=== PATIENT | female | born 1935 | race Caucasian/White ===

== ENCOUNTER → 2016-05-04 | Outpatient (CLI) | payer MEDICARE, OTHER ==
[~2016-05-04] MED LIST: APAP/BUTALBITAL1 TA1 PO; ATENOLOL50 MG PO; AUGMENTIN 875-1 EACH PO; B12-METHYL1000 MCG PO; BUFFERED ASPIR325 MG PO; DESOXIMETASONE0.25% TP; DILTIAZEM 180180 MG PO; FLAX SEED OIL1000 MG PO; FLEXERIL10 MG PO; FUROSEMIDE40 MG PO; HUMALOG KW100 UNIT/1 SQ; LIDODERM 5% PA1 EACH TD; LIDODERM PATCH TD; MIRALAX17 GM/DOSE PO; NEURONTIN100 MG PO; NIACIN500 MG PO; NORCO 325 MG-101 TAB PO; NOVOLOG FLEX100 U/ML SC; OMEPRAZOLE40 MG PO; PERCOCET1 TAB PO; POTASSIUM CHLOR8 MEQ PO; PREMPRO 0.625 M1 TAB PO; PROMETHAZINE12.5 M5 PO; PROMETHAZINE25 MG/ML PO; PYRIDIUM 200MG200 MG PO; PYRIDIUM100 M2 PO; UNITHROID PO; VALTREX1 GM PO; ZAROXOLYN 2.5M2.5 MG PO; [UNRECOGNIZED DRUG - CODE] PO
--- NOTE | 2016-05-07 14:29 | RADIOLOGY REPORT PS360 ---
History and Indications: Hypertension, diabetes, hyperlipidemia, shortness of breath and fatigue. Procedure: Patient received 1 4-mg of Lexiscan resting heart rate was 54 bpm resting blood pressure 187/92, with Lexiscan maximum heart rate achieved was 63 bpm just less than 85% of the maximum predicted heart rate and a blood pressure was 180/84. With Lexiscan denied complained of chest pain or shortness of breath. Electrocardiogram: Resting electrocardiogram showed sinus bradycardia rightward axis, with Lexiscan less than 1.[address] segment depression noted from the baseline EKG. The EKG portion of the Lexiscan is nondiagnostic. Cardiac stress and resting SPECT images: Cardiac stress and resting SPECT images were obtained using technetium 99 Myoview 10.5 mCi at rest and stress, gated SPECT for analysis of segmental wall motion and calculation of the ejection done. Cardiac stress and myocardial activity without fraction is 5% no signal wall motion abnormality right ventricle is normal size and contractility. Conclusion: 1. The EKG portion of the Lexiscan is nondiagnostic. 2. No obvious scintigraphic evidence of reversible ischemia seen, computer derived ejection fraction was 65% no signal wall motion abnormality, right ventricle is normal size and contractility. 3. Normal Lexiscan Myoview study.
== END ==
LOC: RAD 06:30
DX: R06.09 Other forms of dyspnea (principal)
CPT/HCPCS: A9502; J2785

== ENCOUNTER → 2016-12-03 | Outpatient (CLI) | payer MEDICARE, OTHER ==
[2016-12-03 13:35] LABS: BUN 34 mg/dL (7-18)
[2016-12-03 13:50] LABS: GFR (ESTIMATED) 31 ML/MIN (59-)
[2016-12-03 13:59] LABS: HEMOGLOBIN 11.1 g/dL (12.2-16.2); LYMPH # 1.2 K/mm3 (0.7-4.5); LYMPH % 29.6 % (10-50.0)
== END ==
LOC: CARL-LAB 11:15
PROVIDERS: Internal Medicine Adolescent Medicine
DX: I10 Essential (primary) hypertension (principal); E11.42 Type 2 diabetes mellitus with diabetic polyneuropathy; N18.2 Chronic kidney disease, stage 2 (mild)